=== PATIENT | female | born 1935 | race Caucasian/White ===

== ENCOUNTER 2023-10-01 19:40 | Observation (INO) ==
[2023-10-01 20:48] LABS: ABS Basophils 0.1 10^3/uL (0.0-0.1); ABS Eosinophils 0.1 10^3/uL (0.0-0.5); ABS Lymphocytes 2.4 10^3/uL (1.0-4.8); ABS Monocytes 0.9 10^3/uL (0.0-0.9); ABS Neutrophils 3.6 10^3/uL (1.5-7.6); ABS Nucleated RBC 0.02 10^3/ul; Eosinophil % 1.8 %; Hematocrit 36.5 % (35-45); Hemoglobin 12.6 g/dL (11.5-14.3); Lymphocyte % 33.5 %; Mean Corpuscular Hemoglobin 30.4 pg (27-33); Mean Corpuscular Hgb Conc 34.5 g/dL (31-36); Mean Corpuscular Volume 88.2 fL (80-97); Mean Platelet Volume 7.5 fL (7.5-11.2); Nucleated Red Blood Cells % 0.2 %/100WBC (0.0-0.8); Platelet Count 304 10^3/uL (150-450); Red Blood Count 4.14 10^6/uL (3.63-4.92); Red Cell Distribution Width 13.3 % (12-17)
[2023-10-01 20:50] LABS: INR 0.97 (0.83-1.13)
[2023-10-01 21:24] LABS: Albumin 4.1 g/dL (3.2-5.2); Albumin/Globulin Ratio 1.3 (1-3); Calcium 9.1 mg/dL (8.6-10.3); Creatinine, Serum 0.66 mg/dL (0.51-0.95); Globulin 3.1 g/dL (2-4); Potassium 4.1 mmol/L (3.5-5.0); Total Bilirubin 0.7 mg/dL (0.2-1.0); Total Protein 7.2 g/dL (6.4-8.9); eGFR CKD-EPI 85.4 (>60)
[2023-10-01 21:25] LABS: Digoxin 0.7 ng/ml (0.8-2.0)
[2023-10-01 21:40] LABS: TSH Ultra Thyroid Stim Horm 2.55 mcIU/mL (0.34-5.60)
[2023-10-01 21:55] LABS: High Sensitivity Troponin 1 Hr 4 pg/mL (<15)
[2023-10-02 00:19] LABS: High Sensitivity Troponin 3 Hr 8 pg/mL (<15)
[2023-10-02 02:51] LABS: Osmolality Serum 272 mOsm/kg (275-295)
[2023-10-02] MEDS ORDERED: Ipratropium HFA INHALER(NF) (ALTERNATIVE = NEBS) INH PRN (04:06)
[2023-10-02] MEDS: NS 0.9% 500 ml BAG 500 ML IV ONE (04:14)
[2023-10-02 07:15] LABS: Creatinine, Serum 0.61 mg/dL (0.51-0.95); Magnesium 1.9 mg/dL (1.9-2.7); Phosphorus 3.6 mg/dL (2.5-5.0); Potassium 4.1 mmol/L (3.5-5.0)
[2023-10-02] MEDS: Enoxaparin 40 MG/0.4 ML SYR SUBCUT SCH (08:49)
[2023-10-02 10:35] LABS: Urine Osmo 508 mOsm/kg (150-1150)
[2023-10-02] MEDS: NS 0.9% 1000 ml BAG 1,000 ML IV SCH (12:55)
[2023-10-02] MEDS ORDERED: Sulfur Hexaflouride MICROSPHR 25 MG VIAL ONE (16:01)
[2023-10-02 18:37] LABS: Calcium 9.1 mg/dL (8.6-10.3); Creatinine, Serum 0.63 mg/dL (0.51-0.95); Potassium 4.3 mmol/L (3.5-5.0); eGFR CKD-EPI 86.3 (>60)
[2023-10-03 06:21] LABS: Calcium 8.5 mg/dL (8.6-10.3); Creatinine, Serum 0.66 mg/dL (0.51-0.95); Potassium 4.2 mmol/L (3.5-5.0); eGFR CKD-EPI 85.4 (>60)
[2023-10-03 12:07] LABS: C Reactive Protein 5.76 mg/L (<8.01)
[2023-10-03 13:50] VITALS: BP 119/89
== END 2023-10-03 14:15 | disposition home or self-care (01) ==
LOC: ED 19:40 → EDHOLD 19:40 → SUATTDRO 10-02 02:08 → MEDTELE 10-02 13:31
PROVIDERS: ADMIT Internal Medicine; ATTEND Internal Medicine